=== PATIENT | male | born 1945 | race Caucasian/White ===

== ENCOUNTER 2017-02-21 08:02 | Outpatient (CLI) | payer BC, MEDICARE ==
[2017-02-21 12:46] LABS: BASOPHILS # (AUTO) 0.1 10^3/uL (0.0-0.1); BASOPHILS % (AUTO) 0.9 %; EOSINOPHILS # (AUTO) 0.3 10^3/uL (0.0-0.7); EOSINOPHILS % (AUTO) 4.1 %; HCT - HEMATOCRIT 40.5 % (42.0-52.0); HGB - HEMOGLOBIN 13.8 g/dL (14.0-18.0); LYMPHOCYTES # (AUTO) 2.4 10^3/uL (1.5-3.5); LYMPHOCYTES % (AUTO) 31.1 %; MEAN CORPUSCULAR HEMOGLOBIN 29.7 pg (27.0-31.0); MEAN CORPUSCULAR HGB CONC 34.1 g/dL (32.0-36.0); MEAN PLATELET VOLUME 8.4 fL (7.4-11.4); MONOCYTES # (AUTO) 0.6 10^3/uL (0.0-1.0); MONOCYTES % (AUTO) 7.1 %; NEUTROPHILS # (AUTO) 4.4 10^3/uL (1.5-6.6); NEUTROPHILS % (AUTO) 56.8 %; RED BLOOD COUNT 4.66 10^6/uL (4.70-6.10); RED CELL DISTRIBUTION WIDTH 13.5 % (12.0-15.0); UNCORRECTED WHITE BLOOD COUNT 7.8 x10^3/uL; WHITE BLOOD COUNT 7.8 x10^3/uL (4.8-10.8)
[2017-02-21 13:04] LABS: ALBUMIN/GLOBULIN RATIO 1.4 (1.0-2.2); BILIRUBIN,TOTAL 0.6 mg/dL (0.2-1.0); BUN - BLOOD UREA NITROGEN 15 mg/dL (6-20); CALCIUM 9.2 mg/dL (8.5-10.3); CARBON DIOXIDE - CO2 23 mmol/L (21-32); CHLORIDE 107 mmol/L (101-111); CHOL/HDL RATIO 5.7 (<5.0); CHOLESTEROL 204 mg/dL; GFR - MDRD 74 (>89); GLUCOSE 123 mg/dL (70-100); HDL CHOLESTEROL 36 mg/dL; LDL/HDL RATIO 3.9 (<3.6); POTASSIUM 4.2 mmol/L (3.5-5.0); SODIUM 137 mmol/L (135-145); TOTAL PROTEIN 7.3 g/dL (6.7-8.2); TRIGLYCERIDES 142 mg/dL; VLDL CHOLESTEROL 28 mg/dL
== END 2017-02-21 08:03 | disposition home or self-care (01) ==
LOC: LAB.WCP 08:02
PROVIDERS: ATTEND Family Medicine
DX: E78.5 Hyperlipidemia, unspecified (principal); Z12.5 Encounter for screening for malignant neoplasm of prostate
CPT/HCPCS: 36415; 80053; 80061; 84153; 85025

== ENCOUNTER 2017-04-03 11:16 | Day surgery (SDC) | payer BC, MEDICARE ==
[2017-04-03] MEDS ORDERED: LACTATED RINGERS 1,000 ML IV ONE (11:29)
[2017-04-03] MEDS ORDERED: fentaNYL 100 MCG/2 ML VIAL IVP ONE (12:58)
[2017-04-03] MEDS ORDERED: MIDAZOLAM 2 MG/2 ML VIAL IVP ONE (12:58)
[2017-04-03 13:47] VITALS: BP 94/49
== END 2017-04-03 11:17 | disposition home or self-care (01) ==
LOC: SDS 11:16
PROVIDERS: ATTEND Surgery
PROC: 0DBL8ZX Excision of Transverse Colon, Via Natural or Artificial Opening Endoscopic, Diagnostic (ICD-10-PCS; 2017-04-03)
PROC: 0DBN8ZX Excision of Sigmoid Colon, Via Natural or Artificial Opening Endoscopic, Diagnostic (ICD-10-PCS; 2017-04-03)
PROC: 0DBH8ZX Excision of Cecum, Via Natural or Artificial Opening Endoscopic, Diagnostic (ICD-10-PCS; 2017-04-03)
PROC: 0DBK8ZX Excision of Ascending Colon, Via Natural or Artificial Opening Endoscopic, Diagnostic (ICD-10-PCS; principal; 2017-04-03 12:30)
DX: Z12.11 Encounter for screening for malignant neoplasm of colon (principal); D12.2 Benign neoplasm of ascending colon; D12.0 Benign neoplasm of cecum; D12.5 Benign neoplasm of sigmoid colon; D12.3 Benign neoplasm of transverse colon; K57.30 Diverticulosis of large intestine without perforation or abscess without bleeding; E78.5 Hyperlipidemia, unspecified; Z79.82 Long term (current) use of aspirin; Z87.891 Personal history of nicotine dependence
CPT/HCPCS: 45384; J7120; 88305

== ENCOUNTER 2017-06-25 07:32 | Outpatient (CLI) | payer MEDICARE, BC ==
[2017-06-25 14:01] LABS: ALBUMIN/GLOBULIN RATIO 1.4 (1.0-2.2); BILIRUBIN,TOTAL 0.6 mg/dL (0.2-1.0); BUN - BLOOD UREA NITROGEN 14 mg/dL (6-20); CARBON DIOXIDE - CO2 22 mmol/L (21-32); CHLORIDE 108 mmol/L (101-111); CHOL/HDL RATIO 5.3 (<5.0); CHOLESTEROL 189 mg/dL; CREATININE 1.1 mg/dL (0.6-1.2); GFR - MDRD 66 (>89); GLUCOSE 114 mg/dL (70-100); HDL CHOLESTEROL 36 mg/dL; LDL/HDL RATIO 3.4 (<3.6); SODIUM 138 mmol/L (135-145); TOTAL PROTEIN 7.2 g/dL (6.7-8.2); TRIGLYCERIDES 146 mg/dL; VLDL CHOLESTEROL 29 mg/dL
[2017-06-25 14:51] LABS: HEMOGLOBIN A1C 0.61 g/dL
== END 2017-06-25 07:33 | disposition home or self-care (01) ==
LOC: LAB.WCP 07:32
PROVIDERS: ATTEND Family Medicine
DX: R73.01 Impaired fasting glucose (principal); E78.5 Hyperlipidemia, unspecified
CPT/HCPCS: 36415; 80053; 80061; 83036

== ENCOUNTER 2018-08-30 10:30 | Outpatient (CLI) | payer MEDICARE, BC ==
--- NOTE | 2018-08-30 13:07 | Ultrasound Report ---
Reason: NICOTINE ABUSE/DEPENDENCE Procedure Date: 08/30/2018 Accession Number: [id number] / [id number] Procedure: US - Aorta Screening CPT Code: FULL RESULT: EXAM: AORTIC DOPPLER ULTRASOUND EXAM DATE: 08/30/2018 10:47 AM. CLINICAL HISTORY: Nicotine abuse/dependence. COMPARISON: None. TECHNIQUE: Real-time sonographic imaging of retroperitoneal vascular structures, including color-flow, Doppler flow and spectral analysis was performed by the carpet finishing supervisor. Multiple sales representatives static images were saved for review. FINDINGS: Aorta: The abdominal aorta was adequately visualized. No evidence for abdominal aortic aneurysm. Aorta: Proximal: Sagittal AP: 2.6 cm. Mid: Transverse: 2.3 x 2.7 cm. Distal: Transverse: 2.1 x 1.9 cm. Caliber WNL: Yes. Plaque visualized: Yes. Iliacs: Right Iliac: Transverse: 0.9 x 1.0 cm. Left Iliac: Transverse: 0.7 x 1.0 cm. Iliac Vessels: The visualized proximal common iliac arteries are normal in caliber. Other: None. IMPRESSION: Normal. No abdominal aortic aneurysm. RADIA
== END 2018-08-30 10:31 | disposition home or self-care (01) ==
LOC: DI 10:30
PROVIDERS: ATTEND Family Medicine
DX: F17.200 Nicotine dependence, unspecified, uncomplicated (principal)
CPT/HCPCS: 76706

== ENCOUNTER 2018-08-30 10:33 | Outpatient (CLI) | payer MEDICARE, BC ==
--- NOTE | 2018-08-30 12:49 | CT Report ---
Reason: NICOTINE ABUSE/DEPENDENCE Procedure Date: 08/30/2018 Accession Number: [id number] / [id number] Procedure: CT - Chest/Lung Screen Low Dose W/O CPT Code: FULL RESULT: EXAM CT LUNG SCREEN EXAM DATE: 08/30/2018 10:41 AM. HISTORY: 72-year-old patient with [id number]-vumb smoking history. Currently smoking: Yes. COMPARISON: CHEST CT 07/26/2015 10:04 AM. TECHNIQUE: CT examination of the entire thorax without contrast was performed using low-dose technique. Thin section coronal, axial, sagittal and MIP axial images were obtained. In accordance with CT protocol optimization, one or more of the following dose reduction techniques were utilized for this exam: automated exposure control, adjustment of mA and/or KV based on patient size, or use of iterative reconstructive technique. FINDINGS: Nodules: Right upper lobe: 3 mm nodule image 60 series 4, not definitely seen previously. Right middle lobe: Stable 0.9 cm intrafissural nodule image 91 series 4. Right lower lobe: None. Left upper lobe: None. Left lower lobe: 4 mm peribronchial nodule image 98, not identified on prior. Emphysema: Moderate. Pleura: Unremarkable. Aorta: Calcified. Mediastinum: Normal cardiac size. Coronary calcifications: Three-vessel, extensive. Other pulmonary findings: None. Other extrapulmonary findings: None. IMPRESSION: Lung-RADS ASSESSMENT CATEGORY: 3 - probably benign. Probability of malignancy: 1-2%. RECOMMENDATION: Recommended follow up low-dose CT of the chest in 6 months as per Lung-RADS guidelines. RADIA
== END 2018-08-30 10:34 | disposition home or self-care (01) ==
LOC: DI 10:33
PROVIDERS: ATTEND Family Medicine
DX: Z12.2 Encounter for screening for malignant neoplasm of respiratory organs (principal); F17.210 Nicotine dependence, cigarettes, uncomplicated; J43.9 Emphysema, unspecified; R91.8 Other nonspecific abnormal finding of lung field
CPT/HCPCS: 76706; G0297

== ENCOUNTER 2019-04-07 07:15 | Outpatient (CLI) | payer MEDICARE, BC ==
[2019-04-07 12:49] LABS: BASOPHILS % (AUTO) 0.5 %; EOSINOPHILS # (AUTO) 0.3 10^3/uL (0.0-0.7); EOSINOPHILS % (AUTO) 3.1 %; HGB - HEMOGLOBIN 13.7 g/dL (14.0-18.0); LYMPHOCYTES # (AUTO) 2.8 10^3/uL (1.5-3.5); LYMPHOCYTES % (AUTO) 33.5 %; MEAN CORPUSCULAR HEMOGLOBIN 28.8 pg (27.0-31.0); MEAN CORPUSCULAR HGB CONC 31.4 g/dL (32.0-36.0); MEAN CORPUSCULAR VOLUME 91.8 fL (80.0-94.0); MEAN PLATELET VOLUME 10.2 fL (7.4-11.4); MONOCYTES # (AUTO) 0.6 10^3/uL (0.0-1.0); MONOCYTES % (AUTO) 7.4 %; NEUTROPHILS # (AUTO) 4.7 10^3/uL (1.5-6.6); NEUTROPHILS % (AUTO) 55.3 %; PLT - PLATELET COUNT 309 10^3/uL (130-450); RED BLOOD COUNT 4.75 10^6/uL (4.70-6.10); RED CELL DISTRIBUTION WIDTH 13.1 % (12.0-15.0); WHITE BLOOD COUNT 8.4 x10^3/uL (4.8-10.8)
[2019-04-07 13:24] LABS: ALBUMIN/GLOBULIN RATIO 1.2 (1.0-2.2); ALKALINE PHOSPHATASE 70 IU/L (42-121); ALT ALANINE AMINOTRANSFERASE 18 IU/L (10-60); AST ASPARTATE AMINOTRANSFERASE 20 IU/L (10-42); BILIRUBIN,TOTAL 0.6 mg/dL (0.2-1.0); BUN - BLOOD UREA NITROGEN 12 mg/dL (6-20); CALCIUM 9.1 mg/dL (8.5-10.3); CARBON DIOXIDE - CO2 23 mmol/L (21-32); CHLORIDE 107 mmol/L (101-111); GFR - MDRD 73 (>89); GLUCOSE 117 mg/dL (70-100); SODIUM 142 mmol/L (135-145); TOTAL PROTEIN 7.4 g/dL (6.7-8.2); VLDL CHOLESTEROL 32 mg/dL
[2019-04-07 13:25] LABS: CHOL/HDL RATIO 5.4 (<5.0); CHOLESTEROL 193 mg/dL; HDL CHOLESTEROL 36 mg/dL; LDL CHOLESTEROL,CALCULATED 125 mg/dL; LDL/HDL RATIO 3.5 (<3.6)
[2019-04-07 13:54] LABS: HB2 TOTAL 14.7 g/dL; HEMOGLOBIN A1C 0.66 g/dL; HEMOGLOBIN A1C % 6.3 % (4.6-6.2)
== END 2019-04-07 23:59 | disposition home or self-care (01) ==
LOC: LAB.WCP 07:15
PROVIDERS: ATTEND Family Medicine
DX: E78.5 Hyperlipidemia, unspecified (principal); R73.01 Impaired fasting glucose; Z79.899 Other long term (current) drug therapy; Z12.5 Encounter for screening for malignant neoplasm of prostate
CPT/HCPCS: 36415; 80061; 83036; G0103; 80053; 83721; 84153; 84443; 85025

== ENCOUNTER 2019-04-18 10:28 | Outpatient (CLI) | payer MEDICARE, BC ==
--- NOTE | 2019-04-20 07:01 | CT Report ---
Reason: PULMONARY NODULE, YANY ABUSE/DEPENDENCE Procedure Date: 04/18/2019 Accession Number: [id number] / [id number] Procedure: CT - CHEST WO CPT Code: FULL RESULT: EXAM: CT CHEST WITHOUT IV CONTRAST EXAM DATE: 04/18/2019 10:44 AM. CLINICAL HISTORY: Pulmonary nodule, nicotine abuse/dependence. COMPARISONS: CHEST SCREEN LOW DOSE W/O 08/30/2018. TECHNIQUE: Routine helical CT imaging was performed through the chest. IV contrast: None. Reconstructions: Coronal and sagittal. In accordance with CT protocol optimization, one or more of the following dose reduction techniques were utilized for this exam: automated exposure control, adjustment of mA and/or KV based on patient size, or use of iterative reconstructive technique. FINDINGS: Lungs/Pleura: 1. The prior 3 mm right upper lobe pulmonary nodule cannot be well seen on this exam. 2. The noncalcified pleural-based nodule, 9 mm, in the superior posterolateral right middle lobe on image #4/72, unchanged. 3. The prior 4 mm peribronchial nodule in the left lower lobe cannot be well seen on this exam. 4. The small diskoid opacity in the inferior lingula again noted, likely a small atelectasis, unchanged. Bilateral moderate emphysematous lungs with mild bronchial wall thickening demonstrate no new nodules, consolidation, or edema. No pericardial or pleural effusion. No pneumothorax. Mediastinum: The right lower pretracheal adenopathy measured 1.1 x 1.8 cm, no significant interval changes. No new adenopathy or masses. Left and right coronary artery calcifications are again noted. The heart and great vessels are within normal limits. Bones: Unremarkable. Visualized Abdomen: Unremarkable. Other: None. IMPRESSION: 1. The prior reported 3 mm right upper lobe pulmonary nodule and the 4 mm peribronchial nodule in the left lower lobe cannot be well seen on this exam. 2. No significant interval change of the pleural-based nodule near the lateral superior right middle lobe, 9 mm, lung-RADS category 3, recommend chest CT follow-up in 6 months. 3. No other significant interval changes visualized. RADIA
== END 2019-04-18 10:29 | disposition home or self-care (01) ==
LOC: DI 10:28
PROVIDERS: ATTEND Family Medicine
DX: R91.8 Other nonspecific abnormal finding of lung field (principal); J43.9 Emphysema, unspecified; F17.200 Nicotine dependence, unspecified, uncomplicated
CPT/HCPCS: 71250

== ENCOUNTER 2019-11-13 10:04 | Outpatient (CLI) | payer MEDICARE, BC ==
--- NOTE | 2019-11-14 13:52 | CT Report ---
Reason: PULMONARY NODULE Procedure Date: 11/13/2019 Accession Number: [id number] / [id number] Procedure: CT - CHEST WO CPT Code: Final Report FULL RESULT: EXAM: CT CHEST EXAM DATE: 11/13/2019 10:16 AM. CLINICAL HISTORY: Pulmonary nodule. COMPARISONS: CHEST W/O 04/18/2019 10:43 AM CHEST SCREEN LOW DOSE W/O 08/30/2018 10:31 AM IVP 07/30/2015 1:16 PM. TECHNIQUE: Routine helical CT imaging was performed through the chest. IV contrast: None. Reconstructions: Coronal and sagittal. In accordance with CT protocol optimization, one or more of the following dose reduction techniques were utilized for this exam: automated exposure control, adjustment of mA and/or KV based on patient size, or use of iterative reconstructive technique. FINDINGS: Lungs/Pleura: Moderate centrilobular and paraseptal emphysema. A right lung nodule versus perifissural nodule along confluence of right minor and major fissures measuring 6 x 8 mm on series 6 image 50 and also 3D MIP series 10 image 31 of today's exam. This nodule measured 6 mm AP on image 90 and 8 mm transverse on image 91 from series [address] 08/30/2018. Comparison of present 1 mm slice thick images with 5 mm slice thick images from CT 04/18/2019 is difficult from slice selection, however nodule is unchanged compared to the 3D MIP series. Region of the nodule was not imaged on CT IVP 07/30/2015. Bandlike inferior lingular scarring as on prior studies. Mediastinum: Mildly enlarged 1.1 cm short axis right lower paratracheal lymph node previously measured 1 x 2 cm on 04/18/2019 and 08/30/2018. Bones: Unremarkable. Visualized Abdomen: A 7 mm hyperdense exophytic posterior left upper renal cyst is partially imaged, and had attenuation 85 HU on noncontrast abdominal CT series from CT IVP 07/30/2015. Calcified right liver dome granuloma. Other: None. IMPRESSION: 1. Stable 6 x 8 mm lateral right lung nodule versus perifissural nodule at the confluence of major and minor fissures. No significant interval change compared to 08/30/2018. Recommend 1 year low-dose chest CT follow-up. 2. Moderate emphysema. 3. Stable mildly enlarged right lower paratracheal lymph node. RADIA
== END 2019-11-13 10:05 | disposition home or self-care (01) ==
LOC: DI 10:04
PROVIDERS: ATTEND Family Medicine
DX: R91.1 Solitary pulmonary nodule (principal); J43.9 Emphysema, unspecified; R59.0 Localized enlarged lymph nodes
CPT/HCPCS: 71250

== ENCOUNTER 2020-10-05 08:00 | Outpatient (CLI) | payer MEDICARE, BC ==
[2020-10-05 13:25] LABS: BASOPHILS # (AUTO) 0.1 10^3/uL (0.0-0.1); BASOPHILS % (AUTO) 0.8 %; EOSINOPHILS # (AUTO) 0.2 10^3/uL (0.0-0.7); EOSINOPHILS % (AUTO) 2.1 %; HGB - HEMOGLOBIN 13.9 g/dL (14.0-18.0); MEAN CORPUSCULAR HEMOGLOBIN 29.3 pg (27.0-31.0); MEAN CORPUSCULAR VOLUME 91.8 fL (80.0-94.0); MEAN PLATELET VOLUME 10.2 fL (7.4-11.4); MONOCYTES # (AUTO) 0.6 10^3/uL (0.0-1.0); MONOCYTES % (AUTO) 6.6 %; NEUTROPHILS # (AUTO) 6.2 10^3/uL (1.5-6.6); NEUTROPHILS % (AUTO) 68.3 %; PLT - PLATELET COUNT 271 10^3/uL (130-450); RED BLOOD COUNT 4.74 10^6/uL (4.70-6.10); RED CELL DISTRIBUTION WIDTH 13.1 % (12.0-15.0)
[2020-10-05 13:28] LABS: HEMOGLOBIN A1c% 6.1 % (4.27-6.07)
[2020-10-05 13:34] LABS: ALBUMIN 4.3 g/dL (3.2-5.5); ALBUMIN/GLOBULIN RATIO 1.4 (1.0-2.2); ALKALINE PHOSPHATASE 83 IU/L (42-121); ALT ALANINE AMINOTRANSFERASE 19 IU/L (10-60); AST ASPARTATE AMINOTRANSFERASE 22 IU/L (10-42); BILIRUBIN,TOTAL 0.8 mg/dL (0.2-1.0); BUN - BLOOD UREA NITROGEN 12 mg/dL (6-20); CALCIUM 9.4 mg/dL (8.5-10.3); CARBON DIOXIDE - CO2 24 mmol/L (21-32); CHLORIDE 102 mmol/L (101-111); CHOL/HDL RATIO 5.1 (<5.0); CHOLESTEROL 195 mg/dL; CREATININE 1.1 mg/dL (0.6-1.2); GLUCOSE 139 mg/dL (70-100); HDL CHOLESTEROL 38 mg/dL; LDL CHOLESTEROL,CALCULATED 133 mg/dL; LDL/HDL RATIO 3.5 (<3.6); TOTAL PROTEIN 7.3 g/dL (6.7-8.2); VLDL CHOLESTEROL 24 mg/dL
== END 2020-10-05 23:59 | disposition home or self-care (01) ==
LOC: LAB.WCP 08:00
PROVIDERS: ATTEND Family Medicine
DX: R73.01 Impaired fasting glucose (principal); E78.5 Hyperlipidemia, unspecified; Z12.5 Encounter for screening for malignant neoplasm of prostate; F17.200 Nicotine dependence, unspecified, uncomplicated
CPT/HCPCS: 36415; 80053; 80061; 83036; 84443; 85025; G0103; 83721; 84153

== ENCOUNTER 2020-11-04 10:53 | Outpatient (CLI) | payer MEDICARE, BC ==
--- NOTE | 2020-11-05 08:51 | CT Report ---
PROCEDURE: Low Dose Lung Cancer Screen INDICATIONS: NICOTINE DEPENDENCE TECHNIQUE: Noncontrast low-dose 5 mm thick sections acquired from the pulmonary apices to the posterior costophr enic angles. 7 mm thick coronal and sagittal MIP reformats were then acquired. For radiation dose r eduction, the following was used: automated exposure control, adjustment of mA and/or kV according t o patient size. COMPARISON: CT chest 11/13/2019, 04/18/2019, 08/30/2018. FINDINGS: Image quality: Excellent. Lungs and pleura: Moderately severe emphysematous change, best seen over the upper lungs, but there is no evidence of active inflammatory process or early manifestation of neoplasm. A previously identi fied 6 x 8 mm mildly irregular nodule at the lateral major fissure on the right is again seen, having been present at least since 2018 without enlargement. Mediastinum: Heart size is normal. No pericardial effusion. No mediastinal adenopathy by size crit eria. Thoracic aorta and central pulmonary arteries are normal in size. Esophagus is normal in [place]. No hiatal hernia. Bones and chest wall: No suspicious bony lesions. No vertebral body compression fractures. No axil blaise or supraclavicular adenopathy by size criteria. The thyroid is normal in size. Abdomen: Visualized upper abdomen solid organs and bowel loops appear normal in the absence of contr ast. IMPRESSION: Moderately severe emphysematous change best seen over the upper lungs bilaterally. No new nodule is i dentified that would indicate an early manifestation of malignancy. A chronic nodule at the lateral r ight major fissure is again seen, unchanged from 2017, 2018, and 2019, and therefore considered benig n in etiology. Reviewed by: Riki Yao MD on 11/05/2020 8:49 AM PST Approved by: Riki Yao MD on 11/05/2020 8:49 AM PST Station ID: [id number]
== END 2020-11-04 10:54 | disposition home or self-care (01) ==
LOC: DI 10:53
PROVIDERS: ATTEND Family Medicine
DX: Z12.2 Encounter for screening for malignant neoplasm of respiratory organs (principal); F17.210 Nicotine dependence, cigarettes, uncomplicated; J43.9 Emphysema, unspecified

== ENCOUNTER 2021-04-11 08:00 | Outpatient (CLI) | payer MEDICARE, BC ==
[2021-04-11 12:25] LABS: BASOPHILS # (AUTO) 0.1 10^3/uL (0.0-0.1); BASOPHILS % (AUTO) 0.7 %; EOSINOPHILS # (AUTO) 0.2 10^3/uL (0.0-0.7); EOSINOPHILS % (AUTO) 1.8 %; HCT - HEMATOCRIT 42.3 % (42.0-52.0); HGB - HEMOGLOBIN 13.6 g/dL (14.0-18.0); LYMPHOCYTES # (AUTO) 2.1 10^3/uL (1.5-3.5); LYMPHOCYTES % (AUTO) 25.8 %; MEAN CORPUSCULAR HEMOGLOBIN 29.6 pg (27.0-31.0); MEAN CORPUSCULAR HGB CONC 32.2 g/dL (32.0-36.0); MEAN CORPUSCULAR VOLUME 92.2 fL (80.0-94.0); MEAN PLATELET VOLUME 10.2 fL (7.4-11.4); MONOCYTES # (AUTO) 0.6 10^3/uL (0.0-1.0); MONOCYTES % (AUTO) 7.6 %; NEUTROPHILS # (AUTO) 5.3 10^3/uL (1.5-6.6); PLT - PLATELET COUNT 291 10^3/uL (130-450); RED BLOOD COUNT 4.59 10^6/uL (4.70-6.10); RED CELL DISTRIBUTION WIDTH 13.2 % (12.0-15.0); WHITE BLOOD COUNT 8.3 x10^3/uL (4.8-10.8)
[2021-04-11 12:37] LABS: ALKALINE PHOSPHATASE 70 IU/L (42-121); ALT ALANINE AMINOTRANSFERASE 18 IU/L (10-60); AST ASPARTATE AMINOTRANSFERASE 18 IU/L (10-42); BILIRUBIN,TOTAL 0.8 mg/dL (0.2-1.0); CALCIUM 9.4 mg/dL (8.5-10.3); CARBON DIOXIDE - CO2 27 mmol/L (21-32); CHLORIDE 106 mmol/L (101-111); CHOLESTEROL 189 mg/dL; GLUCOSE 104 mg/dL (70-100); HDL CHOLESTEROL 38 mg/dL; LDL CHOLESTEROL,CALCULATED 121 mg/dL; LDL/HDL RATIO 3.2 (<3.6); POTASSIUM 4.6 mmol/L (3.5-5.0); SODIUM 142 mmol/L (135-145); TOTAL PROTEIN 7.6 g/dL (6.7-8.2); TRIGLYCERIDES 148 mg/dL; VLDL CHOLESTEROL 30 mg/dL
[2021-04-11 12:46] LABS: ESTIMATED AVERAGE GLUCOSE 128 mg/dL (70-100); HEMOGLOBIN A1c% 6.1 % (4.27-6.07)
[2021-04-11 12:53] LABS: ALBUMIN 4.6 g/dL (3.2-5.5); ALBUMIN/GLOBULIN RATIO 1.5 (1.0-2.2); BUN - BLOOD UREA NITROGEN 15 mg/dL (6-20); CREATININE 1.1 mg/dL (0.6-1.2); GFR - MDRD 65 (>89)
== END 2021-04-11 23:59 | disposition home or self-care (01) ==
LOC: LAB.WCP 08:00
PROVIDERS: ATTEND Family Medicine
DX: E78.5 Hyperlipidemia, unspecified (principal); R73.01 Impaired fasting glucose; R91.1 Solitary pulmonary nodule
CPT/HCPCS: 36415; 80053; 80061; 83036; 83721; 85025

== ENCOUNTER 2021-11-30 08:20 | Outpatient (CLI) | payer MEDICARE, BC ==
[2021-11-30 12:40] LABS: BASOPHILS # (AUTO) 0.1 10^3/uL (0.0-0.1); BASOPHILS % (AUTO) 0.8 %; EOSINOPHILS # (AUTO) 0.2 10^3/uL (0.0-0.7); EOSINOPHILS % (AUTO) 2.1 %; HCT - HEMATOCRIT 43.1 % (42.0-52.0); HGB - HEMOGLOBIN 13.8 g/dL (14.0-18.0); LYMPHOCYTES # (AUTO) 2.2 10^3/uL (1.5-3.5); LYMPHOCYTES % (AUTO) 24.4 %; MEAN CORPUSCULAR HEMOGLOBIN 29.1 pg (27.0-31.0); MEAN CORPUSCULAR VOLUME 90.9 fL (80.0-94.0); MEAN PLATELET VOLUME 9.9 fL (7.4-11.4); MONOCYTES # (AUTO) 0.7 10^3/uL (0.0-1.0); MONOCYTES % (AUTO) 7.8 %; NEUTROPHILS # (AUTO) 5.8 10^3/uL (1.5-6.6); NEUTROPHILS % (AUTO) 64.6 %; PLT - PLATELET COUNT 469 10^3/uL (130-450); RED BLOOD COUNT 4.74 10^6/uL (4.70-6.10); RED CELL DISTRIBUTION WIDTH 12.7 % (12.0-15.0)
[2021-11-30 13:36] LABS: CHOLESTEROL 185 mg/dL; HDL CHOLESTEROL 37 mg/dL; LDL CHOLESTEROL,CALCULATED 114 mg/dL; LDL/HDL RATIO 3.1 (<3.6); TRIGLYCERIDES 170 mg/dL; VLDL CHOLESTEROL 34 mg/dL
== END 2021-11-30 08:21 | disposition home or self-care (01) ==
LOC: LAB.N 08:20
PROVIDERS: ATTEND Family Medicine
DX: E78.5 Hyperlipidemia, unspecified (principal); R91.1 Solitary pulmonary nodule
CPT/HCPCS: 36415; 80061; 83721; 85025

== ENCOUNTER 2021-12-30 12:16 | Outpatient (CLI) | payer MEDICARE, BC ==
--- NOTE | 2021-12-30 13:24 | CT Report ---
PROCEDURE: Low Dose Lung Cancer Screen INDICATIONS: CIGARETTE SMOKER, PULMONARY NODULE TECHNIQUE: Noncontrast low-dose images were acquired from the pulmonary apices to the posterior costophrenic ang les. Multiplanar MIP reformats were then acquired. For radiation dose reduction, the following was used: automated exposure control, adjustment of mA and/or kV according to patient size. COMPARISON: Prior studies dating back to November 13, 2019 FINDINGS: Thyroid: November 04, 2020. Vasculature: Normal size and contour. Calcified atheromatous change of the aorta. Heart: No cardiomegaly or pericardial effusion. Coronary artery calcification. Mediastinum/cipriano: Persistent mediastinal lymphadenopathy, which may be reactive. Interval development of a 6.3 mm nodule in the left upper lobe (4-174). Lung/pleura: Biapical pleural thickening/scarring. 6.2 x 5.2 mm nodule along the right fissure, most consistent with a fissural node. Paraseptal and centrilobular emphysematous changes. No consolidation, pleural effusion, or pneumothor ax. Tracheobronchial tree: Patent. Persists bronchiectasis. Upper abdomen: No acute abnormality. Bones: No significant abnormality. Chest wall: No significant abnormality. IMPRESSION: 1.Interval development of a 6.3 mm nodule in the left upper lobe. Consider CT follow-up in 6-12 and 1 8-24 months per Fleischner criteria. Reviewed by: Yasmani Galvan MD on 12/30/2021 1:23 PM PDT Approved by: Yasmani Galvan MD on 12/30/2021 1:23 PM PDT Station ID: [id number]
== END 2021-12-30 12:17 | disposition home or self-care (01) ==
LOC: DI 12:16
PROVIDERS: ATTEND Family Medicine
DX: Z12.2 Encounter for screening for malignant neoplasm of respiratory organs (principal); F17.210 Nicotine dependence, cigarettes, uncomplicated; R91.1 Solitary pulmonary nodule

== ENCOUNTER 2022-03-06 08:00 | Outpatient (CLI) | payer MEDICARE, BC | END 2022-03-06 23:59 | disposition home or self-care (01) | LOC: LAB.N 08:00 | PROVIDERS: ATTEND Nurse Practitioner | DX: U07.1 COVID-19 (principal) ==

== ENCOUNTER 2022-06-07 09:06 | Outpatient (CLI) | payer MEDICARE, BC ==
[2022-06-07 12:28] LABS: BASOPHILS # (AUTO) 0.1 10^3/uL (0.0-0.1); BASOPHILS % (AUTO) 0.7 %; EOSINOPHILS # (AUTO) 0.2 10^3/uL (0.0-0.7); EOSINOPHILS % (AUTO) 2.5 %; HCT - HEMATOCRIT 43.3 % (42.0-52.0); HGB - HEMOGLOBIN 14.4 g/dL (14.0-18.0); LYMPHOCYTES # (AUTO) 1.8 10^3/uL (1.5-3.5); LYMPHOCYTES % (AUTO) 23.7 %; MEAN CORPUSCULAR HEMOGLOBIN 30.1 pg (27.0-31.0); MEAN CORPUSCULAR HGB CONC 33.3 g/dL (32.0-36.0); MEAN CORPUSCULAR VOLUME 90.6 fL (80.0-94.0); MEAN PLATELET VOLUME 10.1 fL (7.4-11.4); MONOCYTES # (AUTO) 0.6 10^3/uL (0.0-1.0); MONOCYTES % (AUTO) 7.7 %; NEUTROPHILS # (AUTO) 4.9 10^3/uL (1.5-6.6); NEUTROPHILS % (AUTO) 65.1 %; PLT - PLATELET COUNT 290 10^3/uL (130-450); RED BLOOD COUNT 4.78 10^6/uL (4.70-6.10); RED CELL DISTRIBUTION WIDTH 12.8 % (12.0-15.0); WHITE BLOOD COUNT 7.6 x10^3/uL (4.8-10.8)
[2022-06-07 13:11] LABS: ALBUMIN 4.4 g/dL (3.2-5.5); ALBUMIN/GLOBULIN RATIO 1.3 (1.0-2.2); ALKALINE PHOSPHATASE 69 IU/L (42-121); ALT ALANINE AMINOTRANSFERASE 24 IU/L (10-60); AST ASPARTATE AMINOTRANSFERASE 21 IU/L (10-42); BILIRUBIN,TOTAL 0.6 mg/dL (0.2-1.0); BUN - BLOOD UREA NITROGEN 17 mg/dL (6-20); CALCIUM 9.7 mg/dL (8.5-10.3); CARBON DIOXIDE - CO2 27 mmol/L (21-32); CHLORIDE 107 mmol/L (101-111); CHOL/HDL RATIO 4.7 (<5.0); CHOLESTEROL 198 mg/dL; CREATININE 1.2 mg/dL (0.6-1.2); GFR - MDRD 59 (>89); GLUCOSE 116 mg/dL (70-100); HDL CHOLESTEROL 42 mg/dL; LDL CHOLESTEROL,CALCULATED 129 mg/dL; LDL/HDL RATIO 3.1 (<3.6); POTASSIUM 4.5 mmol/L (3.5-5.0); SODIUM 141 mmol/L (135-145); TOTAL PROTEIN 7.9 g/dL (6.7-8.2); TRIGLYCERIDES 135 mg/dL; VLDL CHOLESTEROL 27 mg/dL
[2022-06-07 13:38] LABS: ESTIMATED AVERAGE GLUCOSE 120 mg/dL (70-100); HEMOGLOBIN A1c% 5.8 % (4.27-6.07)
== END 2022-06-07 09:07 | disposition home or self-care (01) ==
LOC: LAB.N 09:06
PROVIDERS: ATTEND Nurse Practitioner Family
DX: E78.5 Hyperlipidemia, unspecified (principal); R73.01 Impaired fasting glucose; R91.1 Solitary pulmonary nodule
CPT/HCPCS: 36415; 80053; 80061; 83036; 83721; 85025

== ENCOUNTER 2022-06-22 10:35 | Outpatient (CLI) | payer MEDICARE, BC ==
--- NOTE | 2022-06-22 16:09 | CT Report ---
PROCEDURE: Low Dose Lung Cancer Screen INDICATIONS: CIGARETTE SMOKER TECHNIQUE: Noncontrast low-dose axial images were acquired from the pulmonary apices to the posterior costophren ic angles. Multiplanar MIP reformats were then reconstructed. For radiation dose reduction, the follo wing was used: automated exposure control, adjustment of mA and/or kV according to patient size. COMPARISON: None. FINDINGS: Image quality: Excellent. Lungs and pleura: There is severe centrilobular emphysema with an apical predominance. A spiculated 9 mm in diameter pulmonary nodule is redemonstrated within the right horizontal fissure and is unchan ged from the study dated 11/13/2019 (series 4/image 159). An 8 mm diameter pulmonary nodule is present within the lateral aspect of the lingula which measured 7 mm on the comparison CT dated 12/30/2021 an d was not visualized on the CT dated 11/04/2020. Mediastinum: Heart size is normal. No pericardial effusion. There is a 1.0 cm in diameter pretrache al lymph node which is unchanged from the prior study. No other mediastinal or hilar adenopathy. Thor acic aorta and central pulmonary arteries are normal in size. Dense atheromatous calcifications are p resent throughout the thoracic aorta. Esophagus is normal in caliber. No hiatal hernia. Bones and chest wall: No suspicious bony lesions. No vertebral body compression fractures. No axil blaise or supraclavicular adenopathy by size criteria. The thyroid is normal in size and there are no incidental findings. Abdomen: Visualized upper abdomen solid organs and bowel loops appear normal in the absence of contr ast. IMPRESSION: 1. Slight increase in the size of the lingular pulmonary nodule when compared with the prior study fr om 12/30/2021. S was not visualized on the study from 11/04/2020. 3 month follow-up CT or PET/CT recomm ended to further characterize this finding. Reviewed by: Sahra Eli MD on 06/22/2022 4:08 PM PDT Approved by: Sahra Eli MD on 06/22/2022 4:08 PM PDT Station ID: [id number]
== END 2022-06-22 10:36 | disposition home or self-care (01) ==
LOC: DI 10:35
PROVIDERS: ATTEND Nurse Practitioner Family
DX: R91.1 Solitary pulmonary nodule (principal); F17.210 Nicotine dependence, cigarettes, uncomplicated

== ENCOUNTER 2022-10-03 12:27 | Outpatient (CLI) | payer MEDICARE, BC ==
--- NOTE | 2022-10-03 20:04 | CT Report ---
PROCEDURE: CHEST WO INDICATIONS: ABN CHEST CT TECHNIQUE: Noncontrast 1mm axial images were acquired from the pulmonary apices to the posterior costophrenic an gles. Axial 5 mm soft tissue kernel reconstructions were performed as well as 8 mm axial MIP and cor onal and sagittal 5 mm reformations. For radiation dose reduction, the following was used: automate d exposure control, adjustment of mA and/or kV according to patient size. COMPARISON: CT lung cancer screening 06/22/2022, 12/30/2021, CT chest 11/13/2019, 05/20/2015. FINDINGS: Image quality: Excellent. Lungs and pleura: -Right major fissure pulmonary nodule measuring 0.6 cm, (4/153), previously remeasured 0.7 cm, and re motely 0.6 cm in 2014.. -Left upper lobe pulmonary nodule measuring 0.9 cm, (4/172), previously 0.8 cm, previously 0.6 cm on 12/30/2021, and remotely not seen in 2014. Moderate emphysematous change. No acute air space opacities. Central airways are clear. No pleural e ffusions or pneumothorax. Mediastinum: Heart size is normal. Three-vessel coronary artery calcifications. No pericardial effus ion. Right paratracheal node measuring 1 cm, (3/24), previously 1.2 cm, more remotely 1.2 cm on 2019. Thoracic aorta and central pulmonary arteries are normal in size. Esophagus is normal in calib er. Small hiatal hernia. Bones and chest wall: No suspicious bony lesions. No vertebral body compression fractures. No axil blaise or supraclavicular adenopathy by size criteria. The thyroid is normal in size and there are no incidental findings. Abdomen: Left renal cyst measuring 1.1 cm, (75). This measures 40 Hounsfield units on this noncontr ast exam. Circumferential calcific plaque in the aorta. No adrenal nodule. No calcified gallstones. C alcified granulomas. IMPRESSION: 1. Left upper lobe pulmonary nodule measuring 0.9 cm is not significantly changed since June 2022 but increased compared to December 2021. Lung RADS 2. -PET/CT could also be considered for further evaluation. Recommend follow-up lung cancer screening [facility] CT in 12 months. 2. Right paratracheal node measuring 1 cm is stable to slightly decreased in size. Low suspicion give n stability since 2019. -PET/CT could be considered. 3. Severe three-vessel coronary calcifications. 4. Left kidney small corticated cyst. -Recommend attention on follow-up scans. Reviewed by: Jimenez Castellano MD on 10/03/2022 8:03 PM PST Approved by: Jimenez Castellano MD on 10/03/2022 8:03 PM PST Station ID: [id number]
== END 2022-10-03 12:28 | disposition home or self-care (01) ==
LOC: DI 12:27
PROVIDERS: ATTEND Nurse Practitioner Family
DX: R91.1 Solitary pulmonary nodule (principal); I25.10 Atherosclerotic heart disease of native coronary artery without angina pectoris; N28.1 Cyst of kidney, acquired

== ENCOUNTER 2023-07-13 10:36 | Outpatient (CLI) | payer OTHER ==
--- NOTE | 2023-07-13 15:41 | CT Report ---
PROCEDURE: Low Dose Lung Cancer Screen INDICATIONS: HIST OF SMOKING TECHNIQUE: A CT scan of the chest was performed. Intravenous contrast media was not administered. Images were re corded and evaluated at appropriate window settings. Reformats: axial MIP of the chest, coronal and s agittal. For radiation dose reduction, the following was used: automated exposure control, adjustment of mA and/or kV according to patient size. COMPARISON: Lung cancer screening chest CT 10/03/2022. FINDINGS: Image quality: Excellent. Prior cancer history: Unsure. Lungs and pleura: No pleural effusions. No pneumothorax. Severe emphysematous change. A few pulmonary nodules. -Right major fissure nodule measuring 0.6 cm, (3/136), unchanged. -Left upper lobe spiculated nodule measuring 1.3 cm, (3/161), previously 0.9 cm. Mediastinum: Heart size is normal. Three-vessel coronary artery calcifications. No pericardial effusi on. No large vessel abnormality. Precarinal node measuring 1.2 cm, (2/23), unchanged. Chest wall and lower neck: Thyroid is unremarkable. No axillary or supraclavicular adenopathy by size . Bones: No aggressive osseous abnormality. Upper Abdomen: Calcific granuloma in the liver. No adrenal nodule.. IMPRESSION: Left upper lobe spiculated pulmonary nodule measuring 1.3 cm, increased. Lung RAD: 4X - Highly Suspicious. Recommendation: Immediate chest CT with or without contrast, PET/CT and/or tissue sampling depending on the probability of malignancy and comorbidities. PET/CT may be used when there is a "e 8 mm solid component. Non-Lung Significant Findings: Coronary Arterial Calcification - Moderate or Severe. Stable enlarged precarinal lymph node. Reviewed by: Jimenez Castellano MD on 07/13/2023 3:40 PM PDT Approved by: Jimenez Castellano MD on 07/13/2023 3:40 PM PDT Station ID: [id number]
== END 2023-07-13 10:37 | disposition home or self-care (01) ==
LOC: DI 10:36
PROVIDERS: ATTEND Nurse Practitioner Family
DX: Z12.2 Encounter for screening for malignant neoplasm of respiratory organs (principal); Z87.891 Personal history of nicotine dependence; R91.1 Solitary pulmonary nodule; I25.10 Atherosclerotic heart disease of native coronary artery without angina pectoris; R59.0 Localized enlarged lymph nodes

== ENCOUNTER 2024-05-25 08:48 | Emergency (ER) | payer OTHER ==
--- NOTE | 2024-05-25 09:15 | ED Physician Documentation ---
PD HPI URI - Stated complaint Stated Complaint: BACK PX,SHAKES,CHILLS - Chief complaint Chief Complaint: General - History obtained from History obtained from: Patient, Family (spouse) - History of Present Illness Timing - onset: Yesterday Timing duration: Days (1) Timing details: Abrupt onset, Still present Associated symptoms: Fever, Chills, Nasal congestion, Dry cough, NVD (nausea with no PO intake for a day, feels dry.) Contributing factors: No: Sick contact, Immunocompromised Similar symptoms before: Has not had sx before Recently seen: Clinic (seen at pharmacy where had outpt RSV vaccine 4 days ago. did not feel badly then nor next day.) Review of Systems Constitutional: reports: Fever, Chills, Myalgias, Fatigue Nose: reports: Rhinorrhea / runny nose, Congestion Respiratory: reports: Cough. denies: Dyspnea GI: reports: Nausea. denies: Vomiting, Diarrhea PD PAST MEDICAL HISTORY - Past Medical History Past Medical History: Yes Cardiovascular: High cholesterol Respiratory: Pneumonia Endocrine/Autoimmune: None GI: None : Benign prostate hypertrophy HEENT: Macular degeneration Psych: None Musculoskeletal: None Derm: None - Past Surgical History Past Surgical History: Yes Ortho: Shoulder arthroplasty HEENT: Other - Present Medications Home Medications: Ambulatory Orders Medication Instructions Recorded Confirmed Multivitamin [Multiple Vitamins] 1 tab PO DAILY 04/02/17 05/25/24 Albuterol Sulf [Ventolin Hfa 1 - 2 puffs INH Q4HR PRN 05/25/24 05/25/24 Inhaler] Atorvastatin Calcium 40 mg PO DAILY 05/25/24 05/25/24 Cetirizine [ZyrTEC] 10 mg PO DAILY 05/25/24 05/25/24 Cholecalciferol (Vitamin D3) 25 mcg PO DAILY 05/25/24 05/25/24 [Vitamin D3] Doxazosin Mesylate [Cardura Xl] 8 mg PO DAILY 05/25/24 05/25/24 Finasteride [Proscar] 5 mg PO DAILY 05/25/24 05/25/24 Olodaterol HCl [Striverdi Respimat] 2 puffs IH DAILY 05/25/24 05/25/24 Ondansetron Odt [Zofran] 4 mg TL Q6H PRN #10 tablet 05/25/24 Prazosin [Minipress] 1 mg PO DAILY 05/25/24 05/25/24 Sertraline HCl 100 mg PO DAILY 05/25/24 05/25/24 hydrOXYzine PAMOATE [Vistaril] 25 mg PO HS PRN 05/25/24 05/25/24 - Allergies Allergies/Adverse Reactions: Allergies Allergy/AdvReac Type Severity Reaction Status Date / Time No Known Drug Allergies Allergy Verified 05/25/24 08:58 - Social History Does the pt smoke?: Yes Smoking Status: Current some day smoker Does the pt drink ETOH?: No Does the pt have substance abuse?: No - Immunizations Immunizations are current?: Yes - POLST Patient has POLST: No PD ED PE NORMAL - Vitals Vital signs reviewed: Yes - General General: Alert and oriented X 3, No acute distress, Well developed/nourished - HEENT HEENT: Ears normal, Pharynx benign - Neck Neck: Supple, no meningeal sign, No adenopathy - Cardiac Cardiac: RRR, No murmur - Respiratory Respiratory: No respiratory distress, Clear bilaterally - Abdomen Abdomen: Soft, Non tender - Derm Derm: Normal color, Warm and dry - Extremities Extremities: No edema - Neuro Neuro: Alert and oriented X 3, No motor deficit, Normal speech Results - Vitals Vitals: Vital Signs - 24 hr 05/25/24 05/25/24 11:54 13:11 Temperature 36.3 C L Heart Rate 63 67 Respiratory 16 18 Rate Blood Pressure 108/60 116/65 O2 Saturation 95 96 Oxygen O2 Source Room air - Labs Labs: Microbiology 05/25/24 10:18 Blood Culture - Preliminary Blood - Right Hand NO GROWTH AFTER 1 DAY 05/25/24 10:12 Blood Culture - Preliminary Blood - Right Iv-Start NO GROWTH AFTER 1 DAY Laboratory Tests 05/25/24 05/25/24 05/25/24 09:00 09:30 10:12 WBC 12.3 H RBC 4.26 L Hgb 12.1 L Hct 37.4 L MCV 87.8 MCH 28.4 MCHC 32.4 RDW 13.3 Plt Count 193 MPV 9.4 Neut # (Auto) 10.7 H Lymph # (Auto) 0.9 L Sutter # (Auto) 0.6 Eos # (Auto) 0.0 Baso # (Auto) 0.1 Absolute Nucleated RBC 0.00 Nucleated RBC % 0.0 Sodium Potassium Chloride Carbon Dioxide Anion Gap BUN Creatinine Estimated GFR (MDRD) Glucose Lactic Acid Calcium Magnesium Total Bilirubin AST ALT Alkaline Phosphatase Total Protein Albumin Globulin Albumin/Globulin Ratio Lipase Urine Color YELLOW Urine Clarity CLEAR Urine pH 6.0 Ur Specific [place] 1.015 Urine Protein NEGATIVE Urine Glucose (UA) NEGATIVE Urine Ketones NEGATIVE Urine Occult Blood NEGATIVE Urine Nitrite NEGATIVE Urine Bilirubin NEGATIVE Urine Urobilinogen 0.2 (NORMAL) Ur Leukocyte Esterase NEGATIVE Ur Microscopic Review NOT INDICATED Urine Culture Comments NOT INDICATED Nasal Adenovirus (PCR) NOT DETECTED Nasal B. parapertussis DNA (PCR) NOT DETECTED Nasal Coronavir 229E PCR NOT DETECTED Nasal Coronavir HKU1 PCR NOT DETECTED Nasal Coronavir NL63 PCR NOT DETECTED Nasal Coronavir OC43 PCR NOT DETECTED Nasal Enterovir/Rhinovir PCR NOT DETECTED Nasal Influenza B PCR NOT DETECTED Nasal Influenza A PCR NOT DETECTED Nasal Parainfluen 1 PCR NOT DETECTED Nasal Parainfluen 2 PCR NOT DETECTED Nasal Parainfluen 3 PCR NOT DETECTED Nasal Parainfluen 4 PCR NOT DETECTED Nasal RSV (PCR) NOT DETECTED Nasal B.pertussis DNA PCR NOT DETECTED Nasal C.pneumoniae (PCR) NOT DETECTED Florentino Human Metapneumo PCR NOT DETECTED Nasal M.pneumoniae (PCR) NOT DETECTED Nasal SARS-CoV-2 (PCR) NOT DETECTED 05/25/24 05/25/24 10:12 10:12 WBC RBC Hgb Hct MCV MCH MCHC RDW Plt Count MPV Neut # (Auto) Lymph # (Auto) Sutter # (Auto) Eos # (Auto) Baso # (Auto) Absolute Nucleated RBC Nucleated RBC % Sodium 127 L Potassium 4.3 Chloride 98 L Carbon Dioxide 23 Anion Gap 6.0 BUN 22 H Creatinine 1.0 Estimated GFR (MDRD) 72 L Glucose 103 Lactic Acid 0.8 Calcium 8.9 Magnesium 1.7 Total Bilirubin 0.6 AST 29 ALT 28 Alkaline Phosphatase 93 Total Protein 6.6 Albumin 3.9 Globulin 2.7 Albumin/Globulin Ratio 1.4 Lipase 33 Urine Color Urine Clarity Urine pH Ur Specific [place] Urine Protein Urine Glucose (UA) Urine Ketones Urine Occult Blood Urine Nitrite Urine Bilirubin Urine Urobilinogen Ur Leukocyte Esterase Ur Microscopic Review Urine Culture Comments Nasal Adenovirus (PCR) Nasal B. parapertussis DNA (PCR) Nasal Coronavir 229E PCR Nasal Coronavir HKU1 PCR Nasal Coronavir NL63 PCR Nasal Coronavir OC43 PCR Nasal Enterovir/Rhinovir PCR Nasal Influenza B PCR Nasal Influenza A PCR Nasal Parainfluen 1 PCR Nasal Parainfluen 2 PCR Nasal Parainfluen 3 PCR Nasal Parainfluen 4 PCR Nasal RSV (PCR) Nasal B.pertussis DNA PCR Nasal C.pneumoniae (PCR) Florentino Human Metapneumo PCR Nasal M.pneumoniae (PCR) Nasal SARS-CoV-2 (PCR) - Rads (name of study) chest xray Relevant Findings:: Prelim report reviewed (no infiltrates), EMP independent interpretation of test PD Medical Decision Making - ED course Complexity details: reviewed results (cxr clear.), considered differential (seems flu or covid like. Symptoms just 1 day. Resp viral panel negative, so did do CXR to eval more, as well as UA and CBC/lactate. WBC up some at 12; lactate normal. He is feeling better with fluids and Toradol. Does not seem septic. ), d/w patient Departure - Departure Disposition: Home, Self Care Clinical Impression: Flu-like symptoms, Volume depletion Condition: Stable Record reviewed to determine appropriate education?: Yes Follow-Up: SANTIAGO JACQUES ARNP [Primary Care Provider] - Prescriptions: Ondansetron Odt [Zofran] 4 mg TL Q6H PRN #10 tablet PRN Reason: Nausea / Vomiting Comments: Your symptoms sound flulike. The viral panel test we did was negative however for the major viruses including COVID, flu, rhinovirus and several other viruses. The timing of this sounds less likely to be a reaction to your RSV vaccine from 4 days ago though it is potentially possible that it just delayed. Commonly the aches and chills and such that can occur in response to the vaccine commonly occur within the day or 2 after. Otherwise I would assume perhaps a different virus or you may have an early flu that just was too early to show up on the panel test. That said we did look for other sources of infection besides viral. Your chest x-ray is clear without any signs of pneumonia. Your urine is without any signs of infection. Blood test showed a normal white count and lactic acid level which are both if abnormal would potentially be predictors of bacterial or sepsis infection. At this point these are not negative. Will presume a viral illness or perhaps a just immune response to your recent vaccine. Stay well-hydrated. Ondansetron if needed for nausea. Tylenol every 4-6 hours for the next day or 2. Recheck if not resolving over the next 2 or 3 days and return if worse. We did do blood cultures that will result in a couple of days will. Will call you if they are positive for any signs of bacterial infection. Forms: PCP List Discharge Date/Time: 05/25/24 13:24
[2024-05-25 09:37] LABS: BILIRUBIN,URINE NEGATIVE (NEGATIVE); GLUCOSE, URINE (UA) NEGATIVE (NEGATIVE); KETONES,URINE (UA) NEGATIVE (NEGATIVE); LEUKOCYTE ESTERASE, URINE NEGATIVE (NEGATIVE); NITRITE,URINE NEGATIVE (NEGATIVE); OCCULT BLOOD,URINE NEGATIVE (NEGATIVE); PROTEIN,URINE NEGATIVE (NEGATIVE); UROBILINOGEN,URINE 0.2 (NORMAL) E.U./dL (NORMAL)
[2024-05-25 09:44] LABS: CLARITY,URINE CLEAR (CLEAR)
[2024-05-25 10:02] LABS: B. PARAPERTUSSIS- RESP PCR PAN NOT DETECTED; B. PERTUSSIS- RESP PCR PANEL NOT DETECTED; C. PNEUMONIAE- RESP PCR PANEL NOT DETECTED; CORONAVIRUS 229E-RESP PCR NOT DETECTED; CORONAVIRUS HKU1-RESP PCR NOT DETECTED; CORONAVIRUS NL63-RESP PCR NOT DETECTED; CORONAVIRUS OC43-RESP PCR NOT DETECTED; HUMAN METAPNEUMOVIRUS NOT DETECTED; INFLUENZA A- RESP PCR PANEL NOT DETECTED; INFLUENZA B - RESP PCR PANEL NOT DETECTED; M. PNEUMONIAE- RESP PCR PANEL NOT DETECTED; PARAINFLUENZA VIRUS 1 NOT DETECTED; PARAINFLUENZA VIRUS 2 NOT DETECTED; PARAINFLUENZA VIRUS 3 NOT DETECTED; PARAINFLUENZA VIRUS 4 NOT DETECTED; RHINOVIRUS/ENTEROVIRUS NOT DETECTED; RSV- RESP PCR PANEL NOT DETECTED; SARS-CoV-2 -RESP PCR PANEL NOT DETECTED
[2024-05-25] MEDS: ACETAMINOPHEN 500 MG TABLET PO STA (10:02)
[2024-05-25 10:24] LABS: BASOPHILS # (AUTO) 0.1 10^3/uL (0.0-0.1); BASOPHILS % (AUTO) 0.4 %; EOSINOPHILS % (AUTO) 0.1 %; HCT - HEMATOCRIT 37.4 % (42.0-52.0); HGB - HEMOGLOBIN 12.1 g/dL (14.0-18.0); LYMPHOCYTES # (AUTO) 0.9 10^3/uL (1.5-3.5); LYMPHOCYTES % (AUTO) 7.1 %; MEAN CORPUSCULAR HEMOGLOBIN 28.4 pg (27.0-31.0); MEAN CORPUSCULAR HGB CONC 32.4 g/dL (32.0-36.0); MEAN CORPUSCULAR VOLUME 87.8 fL (80.0-94.0); MEAN PLATELET VOLUME 9.4 fL (7.4-11.4); MONOCYTES # (AUTO) 0.6 10^3/uL (0.0-1.0); MONOCYTES % (AUTO) 5.1 %; NEUTROPHILS # (AUTO) 10.7 10^3/uL (1.5-6.6); NEUTROPHILS % (AUTO) 86.8 %; PLT - PLATELET COUNT 193 10^3/uL (130-450); RED BLOOD COUNT 4.26 10^6/uL (4.70-6.10); RED CELL DISTRIBUTION WIDTH 13.3 % (12.0-15.0); WHITE BLOOD COUNT 12.3 x10^3/uL (4.8-10.8)
[2024-05-25] MEDS: KETOROLAC 15 MG/ML VIAL IVP STA (10:32)
[2024-05-25] MEDS: SODIUM CHLORIDE 0.9% 1,000 ML IV STA (10:32)
--- NOTE | 2024-05-25 10:37 | XRAY Report ---
PROCEDURE: Chest 1V INDICATIONS: chest pain TECHNIQUE: One view of the chest was acquired. COMPARISON: Multiple prior chest CTs, most recent dated 07/13/2023.. FINDINGS: Surgical changes and devices: None. Lungs and pleura: No pleural effusions or pneumothorax. Lungs are clear. Mediastinum: Mediastinal contours appear normal. Heart size is normal. Bones and chest wall: No suspicious bony lesions. Overlying soft tissues appear unremarkable. IMPRESSION: No acute cardiopulmonary process. Reviewed by: Jayshree García MD on 05/25/2024 9:36 AM NIKHIL Approved by: Jayshree García MD on 05/25/2024 9:36 AM NIKHIL Station ID: [id number]
[2024-05-25 10:46] LABS: ALBUMIN 3.9 g/dL (3.2-5.5); ALBUMIN/GLOBULIN RATIO 1.4 (1.0-2.2); BILIRUBIN,TOTAL 0.6 mg/dL (0.2-1.0); CALCIUM 8.9 mg/dL (8.5-10.3); MAGNESIUM 1.7 mg/dL (1.7-2.3); POTASSIUM 4.3 mmol/L (3.5-4.5); TOTAL PROTEIN 6.6 g/dL (6.4-8.9)
[2024-05-25 13:19] VITALS: BP 116/65; O2SAT 96
== END 2024-05-25 13:24 | disposition home or self-care (01) ==
LOC: ED 08:48
DX: E86.9 Volume depletion, unspecified (principal); R50.9 Fever, unspecified; R05.8 Other specified cough; R09.81 Nasal congestion; E78.00 Pure hypercholesterolemia, unspecified; F17.200 Nicotine dependence, unspecified, uncomplicated; Z79.899 Other long term (current) drug therapy
CPT/HCPCS: 36415; 71045; 80053; 81003; 83605; 83690; 83735; 85025; 87040; 87633; 96374; 99284; A9270; 81001; 87086